=== PATIENT | female | born 1945 | race Caucasian/White ===

== ENCOUNTER 2017-06-25 14:18 | Inpatient (IN) | payer MEDICARE, OTHER ==
[2017-06-25] MEDS ORDERED: Sodium Chloride 0.9% 10 ML Syringe FLUSH PRN (15:23)
[2017-06-25 15:47] LABS: CHLORIDE,CL 104 mEq/L (98-106); SODIUM,NA 140 mEq/L (136-145)
[2017-06-25] MEDS: Albuterol/Ipratropium 3.0-0.5 MG/3 ML Neb Soln NEB SCH ×2 (16:15→20:17)
[2017-06-25] MEDS: Azithromycin 500 MG in Sodium Chloride 0.9% 250 ML IV SCH (16:16)
[2017-06-25] MEDS: Enoxaparin 40 MG/0.4 ML Syringe SUBCUT SCH (16:20)
[2017-06-25] MEDS: methylPREDNISolone Sodium Succinate 125 MG/2 ML SDV IVPUSH SCH (16:22)
[2017-06-25] MEDS: cefTRIAXone 1 GM Vial IVPUSH SCH (16:24)
[2017-06-25] MEDS: glipiZIDE 5 MG Tab PO SCH (17:35)
[2017-06-25] MEDS: metFORMIN 500 MG Tab PO SCH (17:35)
[2017-06-25] MEDS: Pantoprazole 40 MG Vial IVPUSH SCH (17:40)
[2017-06-25] MEDS: Simvastatin 40 MG Tab PO SCH (19:47)
[2017-06-25] MEDS: Montelukast 10 MG Tab PO SCH (19:47)
[2017-06-25] MEDS: Formoterol/Mometasone 200-5 MCG 8.8 GM Inhaler IH SCH (20:18)
[2017-06-25] MEDS: Codeine/Promethazine 10-6.25 MG/5 ML Syrup 5 ML UD Cup PO PRN (20:26)
[2017-06-26] MEDS ORDERED: guaiFENesin 200 MG Tab PO PRN (09:46)
[2017-06-26] MEDS: Codeine/Promethazine 10-6.25 MG/5 ML Syrup 5 ML UD Cup PO PRN ×2 (10:11→17:49)
[2017-06-26] MEDS: metFORMIN 500 MG Tab PO SCH ×2 (10:12→16:54)
[2017-06-26] MEDS: Albuterol/Ipratropium 3.0-0.5 MG/3 ML Neb Soln NEB SCH ×4 (10:12→20:23)
[2017-06-26] MEDS: Formoterol/Mometasone 200-5 MCG 8.8 GM Inhaler IH SCH ×2 (10:12→20:24)
[2017-06-26] MEDS: Potassium Chloride 10 MEQ Tab.ER PO SCH (10:13)
[2017-06-26] MEDS: glipiZIDE 5 MG Tab PO SCH ×2 (10:13→16:54)
[2017-06-26] MEDS: Furosemide 40 MG Tab PO SCH (10:13)
[2017-06-26] MEDS: Levothyroxine 150 MCG Tab PO SCH (10:13)
[2017-06-26] MEDS: Insulin Aspart 100 Units/ML 3 ML Pen SUBCUT SCH ×3 (12:00→20:17)
--- NOTE | 2017-06-26 14:53 | PCM.PN ---
- General Info Date of Service: 06/26/17 Admission Dx/Problem (Free Text): Asthma Exacerbation Functional Status: Reports: Pain Controlled, Tolerating Diet, Ambulating - Review of Systems General: Reports: Fever, Weakness, Fatigue HEENT: Reports: Sinus Congestion, Rhinitis Pulmonary: Reports: Shortness of Breath, Cough, Wheezing Cardiovascular: Reports: No Symptoms Gastrointestinal: Denies: Abdominal Pain, Nausea, Vomiting Genitourinary: Reports: No Symptoms Musculoskeletal: Reports: No Symptoms Skin: Reports: No Symptoms Neurological: Reports: No Symptoms - Patient Data Vitals - Most Recent: Last Vital Signs Temp 97.3 F 06/26/17 12:00 Pulse 102 H 06/26/17 12:00 Resp 19 06/26/17 12:00 BP 105/60 06/26/17 12:00 Pulse Ox 98 06/26/17 12:00 Weight - Most Recent: 166 lb 14.239 oz Lab Results Last 24 Hours: Laboratory Results - last 24 hr 06/25/17 06/25/17 06/25/17 Range/Units 15:23 15:23 16:00 WBC 4.4 L (5.0-10.0) 10^3/uL RBC 3.90 L (4.00-5.50) 10^6/uL Hgb 9.6 L (12.0-16.0) g/dL Hct 31.2 L (37.0-47.0) % MCV 80.0 L (82.0-94.0) fL MCH 24.6 L (27.0-32.0) pg MCHC 30.8 L (33.0-38.0) g/dL RDW Coeff of Mahnaz 15.5 H (11.0-15.0) % Plt Count 171 (150-400) 10^3/uL Neut % (Auto) 64.8 (35-85) % Lymph % (Auto) 24.5 (10-55) % Chambers % (Auto) 7.1 (0-16) % Eos % (Auto) 3.4 (0-5) % Baso % (Auto) 0.2 (0-3) % Neut # (Auto) 2.82 (1.80-7.00) 10^3/uL Lymph # (Auto) 1.07 (1.00-4.80) 10^3/uL Chambers # (Auto) 0.31 (0.00-0.80) 10^3/uL Eos # (Auto) 0.15 (0.00-0.45) 10^3/uL Baso # (Auto) 0.01 10^3/uL Sodium 140 (136-145) mEq/L Potassium 3.8 (3.5-5.0) mEq/L Chloride 104 (98-106) mEq/L Carbon Dioxide 24 (21-32) mmol/L BUN 6 L (7-18) mg/dL Creatinine 0.9 (0.6-1.0) mg/dL Est Cr Clr Drug Dosing 47.95 mL/min Estimated GFR (MDRD) > 60 (>=60) mL/min Glucose 94 D (75-99) mg/dL POC Glucose (75-105) mg/dl Calcium 8.3 L (8.4-10.1) mg/dL C-Reactive Protein 1.8 H (0.2-0.8) mg/dL Urine Color Yellow (YELLOW) Urine Appearance Clear (CLEAR) Urine pH 8.5 H (4.5-8.0) Ur Specific [place] 1.015 (1.003-1.020) Urine Protein Negative (NEGATIVE) mg/dL Urine Glucose (UA) Negative (NEGATIVE) mg/dL Urine Ketones Negative (NEGATIVE) mg/dL Urine Occult Blood Negative (NEGATIVE) Urine Nitrite Negative (NEGATIVE) Urine Bilirubin Negative (NEGATIVE) Urine Urobilinogen 0.2 (0.2-1.0) EU/dL Ur Leukocyte Esterase Negative (NEGATIVE) Urine RBC Not seen (0-5) /HPF Urine WBC Not seen (0-5) /HPF Ur Squamous Epith Cells Occasional H (NOT SEEN) /HPF 06/25/17 06/25/17 06/26/17 Range/Units 17:41 20:31 07:30 WBC (5.0-10.0) 10^3/uL RBC (4.00-5.50) 10^6/uL Hgb (12.0-16.0) g/dL Hct (37.0-47.0) % MCV (82.0-94.0) fL MCH (27.0-32.0) pg MCHC (33.0-38.0) g/dL RDW Coeff of Mahnaz (11.0-15.0) % Plt Count (150-400) 10^3/uL Neut % (Auto) (35-85) % Lymph % (Auto) (10-55) % [place] % (Auto) (0-16) % Eos % (Auto) (0-5) % Baso % (Auto) (0-3) % Neut # (Auto) (1.80-7.00) 10^3/uL Lymph # (Auto) (1.00-4.80) 10^3/uL Chambers # (Auto) (0.00-0.80) 10^3/uL Eos # (Auto) (0.00-0.45) 10^3/uL Baso # (Auto) 10^3/uL Sodium (136-145) mEq/L Potassium (3.5-5.0) mEq/L Chloride (98-106) mEq/L Carbon Dioxide (21-32) mmol/L BUN (7-18) mg/dL Creatinine (0.6-1.0) mg/dL Est Cr Clr Drug Dosing mL/min Estimated GFR (MDRD) (>=60) mL/min Glucose (75-99) mg/dL POC Glucose 115 H 313 H 284 H (75-105) mg/dl Calcium (8.4-10.1) mg/dL C-Reactive Protein (0.2-0.8) mg/dL Urine Color (YELLOW) Urine Appearance (CLEAR) Urine pH (4.5-8.0) Ur Specific [place] (1.003-1.020) Urine Protein (NEGATIVE) mg/dL Urine Glucose (UA) (NEGATIVE) mg/dL Urine Ketones (NEGATIVE) mg/dL Urine Occult Blood (NEGATIVE) Urine Nitrite (NEGATIVE) Urine Bilirubin (NEGATIVE) Urine Urobilinogen (0.2-1.0) EU/dL Ur Leukocyte Esterase (NEGATIVE) Urine RBC (0-5) /HPF Urine WBC (0-5) /HPF Ur Squamous Epith Cells (NOT SEEN) /HPF 06/26/17 Range/Units 11:55 WBC (5.0-10.0) 10^3/uL RBC (4.00-5.50) 10^6/uL Hgb (12.0-16.0) g/dL Hct (37.0-47.0) % MCV (82.0-94.0) fL MCH (27.0-32.0) pg MCHC (33.0-38.0) g/dL RDW Coeff of Mahnaz (11.0-15.0) % Plt Count (150-400) 10^3/uL Neut % (Auto) (35-85) % Lymph % (Auto) (10-55) % Chambers % (Auto) (0-16) % Eos % (Auto) (0-5) % Baso % (Auto) (0-3) % Neut # (Auto) (1.80-7.00) 10^3/uL Lymph # (Auto) (1.00-4.80) 10^3/uL [place] # (Auto) (0.00-0.80) 10^3/uL Eos # (Auto) (0.00-0.45) 10^3/uL Baso # (Auto) 10^3/uL Sodium (136-145) mEq/L Potassium (3.5-5.0) mEq/L Chloride (98-106) mEq/L Carbon Dioxide (21-32) mmol/L BUN (7-18) mg/dL Creatinine (0.6-1.0) mg/dL Est Cr Clr Drug Dosing mL/min Estimated GFR (MDRD) (>=60) mL/min Glucose (75-99) mg/dL POC Glucose 192 H (75-105) mg/dl Calcium (8.4-10.1) mg/dL C-Reactive Protein (0.2-0.8) mg/dL Urine Color (YELLOW) Urine Appearance (CLEAR) Urine pH (4.5-8.0) Ur Specific [place] (1.003-1.020) Urine Protein (NEGATIVE) mg/dL Urine Glucose (UA) (NEGATIVE) mg/dL Urine Ketones (NEGATIVE) mg/dL Urine Occult Blood (NEGATIVE) Urine Nitrite (NEGATIVE) Urine Bilirubin (NEGATIVE) Urine Urobilinogen (0.2-1.0) EU/dL Ur Leukocyte Esterase (NEGATIVE) Urine RBC (0-5) /HPF Urine WBC (0-5) /HPF Ur Squamous Epith Cells (NOT SEEN) /HPF Berry Results Last 24 Hours: Microbiology 06/26/17 10:00 Occult Blood - Preliminary Stool / Feces Med Orders - Current: Current Medications Acetaminophen (Tylenol) 650 mg PO Q4H PRN PRN Reason: Pain/Fever Albuterol/Ipratropium (Duoneb 3.0-0.5 Mg/3 Ml) 3 ml NEB QIDRT [facility] Last Admin: 06/26/17 12:00 Dose: 3 ml Ceftriaxone Sodium (Rocephin) 1 gm IVPUSH Q24H [facility] Last Admin: 06/25/17 16:24 Dose: 1 gm Enoxaparin Sodium (Lovenox) 40 mg SUBCUT Q24H [facility] Last Admin: 06/25/17 16:20 Dose: 40 mg Furosemide (Lasix) 40 mg PO DAILY [facility] Last Admin: 06/26/17 10:13 Dose: Not Given Glipizide (Glucotrol) 5 mg PO BIDMEALS [facility] Last Admin: 06/26/17 10:13 Dose: Not Given Guaifenesin (Organ-I Nr) 200 mg PO Q4H PRN PRN Reason: Cough Azithromycin 500 mg/ Sodium (Chloride) 250 mls @ 250 mls/hr IV Q24H [facility] Last Admin: 06/25/17 16:16 Dose: 250 mls/hr Insulin Aspart (Novolog) 0 unit SUBCUT WITHMEALSANDBED [facility]; Protocol Last Admin: 06/26/17 12:00 Dose: 2 unit Levothyroxine Sodium (Levothyroxine) 150 mcg PO DAILY [facility] Last Admin: 06/26/17 10:13 Dose: Not Given Metformin HCl (Glucophage) 1,000 mg PO BIDMEALS [facility] Last Admin: 06/26/17 10:12 Dose: Not Given Methylprednisolone Sodium Succinate (Solu-Medrol) 125 mg IVPUSH Q24H [facility] Last Admin: 06/25/17 16:22 Dose: 125 mg Mometasone Furoate/Formoterol Fumar (Dulera 200-5 Mcg) 2 puff IH BID [facility] Last Admin: 06/26/17 10:12 Dose: Not Given Montelukast Sodium (Singulair) 10 mg PO BEDTIME [facility] Last Admin: 06/25/17 19:47 Dose: 10 mg Pantoprazole Sodium (Protonix Iv) 40 mg IVPUSH Q24H [facility] Last Admin: 06/25/17 17:40 Dose: 40 mg Potassium Chloride (Klor-Con 10) 20 meq PO DAILY [facility] Last Admin: 03/27/18 10:13 Dose: Not Given Promethazine HCl/Codeine (Phenergan With Codeine) 10 ml PO Q6H PRN PRN Reason: Cough Last Admin: 06/26/17 10:11 Dose: 10 ml Simvastatin (Zocor) 40 mg PO BEDTIME [facility] Last Admin: 06/25/17 19:47 Dose: 40 mg Sodium Chloride (Saline Flush) 10 ml FLUSH ASDIRECTED PRN PRN Reason: Keep Vein Open - Exam General: Alert, Oriented HEENT: Mucous Membr. Moist/[place] Neck: Supple Lungs: Decreased Breath Sounds, Wheezing Cardiovascular: Regular Rate, Regular Rhythm GI/Abdominal Exam: Normal Bowel Sounds, Soft, Non-Tender Extremities: Normal Inspection, No Pedal Edema Skin: Warm, Dry Neurological: No New Focal Deficit - Problem List & Annotations (1) Asthma exacerbation SNOMED Code(s): 469153051 Code(s): J45.901 - UNSPECIFIED ASTHMA WITH (ACUTE) EXACERBATION Status: Acute Priority: High Current Visit: Yes (2) Diabetes mellitus, type II SNOMED Code(s): 86780092 Code(s): E11.9 - TYPE 2 DIABETES MELLITUS WITHOUT COMPLICATIONS Status: Acute Priority: High Current Visit: Yes - Problem List Review Problem List Initiated/Reviewed/Updated: Yes - My Orders Last 24 Hours: My Active Orders 06/26/17 09:46 guaiFENesin [Organ-I NR] 200 mg PO Q4H PRN 06/26/17 11:56 Acetaminophen [Tylenol] 650 mg PO Q4H PRN 06/26/17 12:00 Insulin Aspart [NovoLOG] See Protocol SUBCUT WITHMEALSANDBED - Assessment Assessment:: Asthma Exacerbation - Plan Plan:: Patient admitted for asthma exacerbation. Presented with increasing sinus congestion and cough over the last 5 days. [place] it was precipitated by choking on coffee. Has been wheezing, states chest still tight. Is concerned about her laryngitis. Cough does cause throat discomfort. She does continue to have inspiratory and expiratory wheezing noted. Oxygen sats are good. All labs were normal on admit. Blood sugars have been increasing due to Solu Medrol. Will start sliding scale insulin, continue to watch blood sugars QID. Add Mucinex. Encourage ambulation. Inappropriate for discharge today.
[2017-06-26] MEDS: Enoxaparin 40 MG/0.4 ML Syringe SUBCUT SCH (15:22)
[2017-06-26] MEDS: methylPREDNISolone Sodium Succinate 125 MG/2 ML SDV IVPUSH SCH (15:24)
[2017-06-26] MEDS: cefTRIAXone 1 GM Vial IVPUSH SCH (15:25)
[2017-06-26] MEDS: Azithromycin 500 MG in Sodium Chloride 0.9% 250 ML IV SCH (15:30)
[2017-06-26] MEDS: Pantoprazole 40 MG Vial IVPUSH SCH (16:55)
[2017-06-26] MEDS: Acetaminophen 325 MG Tab PO PRN (17:49)
[2017-06-26] MEDS: Montelukast 10 MG Tab PO SCH (20:22)
[2017-06-26] MEDS: Simvastatin 40 MG Tab PO SCH (20:22)
[2017-06-27] MEDS: metFORMIN 500 MG Tab PO SCH ×2 (07:25→17:00)
[2017-06-27] MEDS: Potassium Chloride 10 MEQ Tab.ER PO SCH (07:25)
[2017-06-27] MEDS: Levothyroxine 150 MCG Tab PO SCH (07:25)
[2017-06-27] MEDS: Furosemide 40 MG Tab PO SCH (07:25)
[2017-06-27] MEDS: Albuterol/Ipratropium 3.0-0.5 MG/3 ML Neb Soln NEB SCH ×4 (07:25→19:51)
[2017-06-27] MEDS: Formoterol/Mometasone 200-5 MCG 8.8 GM Inhaler IH SCH ×2 (07:26→19:52)
[2017-06-27] MEDS: glipiZIDE 5 MG Tab PO SCH ×2 (07:26→17:00)
[2017-06-27] MEDS: Insulin Aspart 100 Units/ML 3 ML Pen SUBCUT SCH ×4 (07:58→20:15)
[2017-06-27] MEDS: Acetaminophen 325 MG Tab PO PRN (08:55)
[2017-06-27] MEDS: Codeine/Promethazine 10-6.25 MG/5 ML Syrup 5 ML UD Cup PO PRN ×2 (13:08→20:03)
[2017-06-27] MEDS: methylPREDNISolone Sodium Succinate 125 MG/2 ML SDV IVPUSH SCH (15:47)
[2017-06-27] MEDS: Enoxaparin 40 MG/0.4 ML Syringe SUBCUT SCH (15:47)
[2017-06-27] MEDS: Azithromycin 500 MG in Sodium Chloride 0.9% 250 ML IV SCH (15:47)
[2017-06-27] MEDS: cefTRIAXone 1 GM Vial IVPUSH SCH (15:47)
[2017-06-27] MEDS: Pantoprazole 40 MG Vial IVPUSH SCH (16:09)
[2017-06-27] MEDS: Montelukast 10 MG Tab PO SCH (19:50)
[2017-06-27] MEDS: Simvastatin 40 MG Tab PO SCH (19:50)
--- NOTE | 2017-06-28 07:16 | PN ---
DATE: 06/27/2017 HISTORY OF PRESENT ILLNESS: Zara was admitted for asthma exacerbation. Questionable etiology. She has had some URI symptoms but also did have a choking episode many days prior to this, approximately a week, I believe. Nevertheless she presented with cough and wheezing. Chest x-ray has been clear. Labs are reassuring other than mild anemia, still waiting on workup thus far. Hemoccults are negative. PHYSICAL EXAMINATION: VITAL SIGNS: Stable. She is saturating above 90 on room air. She has not spiked any temps. She is less labored with her breathing and less tachypneic today but still present. HEENT: She is starting to get a little stronger voice, laryngitis type symptoms appeared to be resolving. NECK: I do not feel any cervical adenopathy. Trachea is midline. LUNGS: Sounds are diminished with expiratory wheezes diffusely, no rales or rhonchi. CARDIAC: Tones are regular and non tachy. ABDOMEN: Soft. EXTREMITIES: No peripheral edema. ASSESSMENT: ASTHMA EXACERBATION. P: We will continue with all current cares. Repeat a hemoglobin today although I suspect this is not anything acute. NENA/JANIYA /[id number]
[2017-06-28] MEDS: Levothyroxine 150 MCG Tab PO SCH (07:39)
[2017-06-28] MEDS: Formoterol/Mometasone 200-5 MCG 8.8 GM Inhaler IH SCH ×2 (07:39→20:07)
[2017-06-28] MEDS: glipiZIDE 5 MG Tab PO SCH ×2 (07:39→17:44)
[2017-06-28] MEDS: Furosemide 40 MG Tab PO SCH (07:39)
[2017-06-28] MEDS: Albuterol/Ipratropium 3.0-0.5 MG/3 ML Neb Soln NEB SCH ×4 (07:39→20:06)
[2017-06-28] MEDS: metFORMIN 500 MG Tab PO SCH ×2 (07:39→17:44)
[2017-06-28] MEDS: Potassium Chloride 10 MEQ Tab.ER PO SCH (07:39)
[2017-06-28] MEDS: Insulin Aspart 100 Units/ML 3 ML Pen SUBCUT SCH ×4 (08:09→20:07)
--- NOTE | 2017-06-28 08:51 | PCM.PN ---
- General Info Date of Service: 06/28/17 Admission Dx/Problem (Free Text): Asthma Exacerbation Functional Status: Reports: Pain Controlled, Tolerating Diet, Ambulating - Review of Systems General: Reports: Weakness, Fatigue. Denies: Fever HEENT: Reports: Sore Throat (laryngitis), Rhinitis, Other (sore in left nare) Pulmonary: Reports: Shortness of Breath, Cough, Wheezing. Denies: Sputum Cardiovascular: Denies: Chest Pain, Edema, Lightheadedness Gastrointestinal: Reports: Other (bloating). Denies: Abdominal Pain, Nausea, Vomiting Genitourinary: Reports: No Symptoms Musculoskeletal: Reports: No Symptoms Skin: Reports: No Symptoms Neurological: Reports: No Symptoms - Patient Data Vitals - Most Recent: Last Vital Signs Temp 98.2 F 06/28/17 08:00 Pulse 61 06/28/17 08:00 Resp 20 06/28/17 08:00 BP 116/64 06/28/17 08:00 Pulse Ox 94 L 06/28/17 08:00 Weight - Most Recent: 166 lb 14.239 oz Lab Results Last 24 Hours: Laboratory Results - last 24 hr 06/27/17 06/27/17 06/27/17 Range/Units 11:40 13:00 17:18 Hgb 9.9 L (12.0-16.0) g/dL POC Glucose 57 L 223 H (75-105) mg/dl 06/27/17 06/28/17 Range/Units 20:13 07:28 Hgb (12.0-16.0) g/dL POC Glucose 356 H 229 H (75-105) mg/dl Berry Results Last 24 Hours: Microbiology 06/26/17 10:00 Occult Blood - Final Stool / Feces Med Orders - Current: Current Medications Acetaminophen (Tylenol) 650 mg PO Q4H PRN PRN Reason: Pain/Fever Last Admin: 06/27/17 08:55 Dose: 650 mg Albuterol/Ipratropium (Duoneb 3.0-0.5 Mg/3 Ml) 3 ml NEB QIDRT [facility] Last Admin: 06/28/17 07:39 Dose: 3 ml Ceftriaxone Sodium (Rocephin) 1 gm IVPUSH DAILY@1600 [facility] Enoxaparin Sodium (Lovenox) 40 mg SUBCUT DAILY@1600 [facility] Ferrous Sulfate (Ferrous Sulfate) 324 mg PO BIDMEALS [facility] Furosemide (Lasix) 40 mg PO DAILY [facility] Last Admin: 06/28/17 07:39 Dose: 40 mg Glipizide (Glucotrol) 5 mg PO BIDMEALS [facility] Last Admin: 06/28/17 07:39 Dose: 5 mg Guaifenesin (Organ-I Nr) 200 mg PO Q4H PRN PRN Reason: Cough Azithromycin 500 mg/ Sodium (Chloride) 250 mls @ 250 mls/hr IV DAILY@1600 [facility] Insulin Aspart (Novolog) 0 unit SUBCUT WITHMEALSANDBED [facility]; Protocol Last Admin: 06/28/17 08:09 Dose: 4 unit Levothyroxine Sodium (Levothyroxine) 150 mcg PO DAILY [facility] Last Admin: 06/28/17 07:39 Dose: 150 mcg Metformin HCl (Glucophage) 1,000 mg PO BIDMEALS [facility] Last Admin: 06/28/17 07:39 Dose: 1,000 mg Methylprednisolone Sodium Succinate (Solu-Medrol) 125 mg IVPUSH DAILY@1600 [facility] Mometasone Furoate/Formoterol Fumar (Dulera 200-5 Mcg) 2 puff IH BID [facility] Last Admin: 06/28/17 07:39 Dose: 2 puff Montelukast Sodium (Singulair) 10 mg PO BEDTIME [facility] Last Admin: 06/27/17 19:50 Dose: 10 mg Pantoprazole Sodium (Protonix Iv) 40 mg IVPUSH DAILY@1600 [facility] Potassium Chloride (Klor-Con 10) 20 meq PO DAILY [facility] Last Admin: 06/28/17 07:39 Dose: 20 meq Promethazine HCl/Codeine (Phenergan With Codeine) 10 ml PO Q6H PRN PRN Reason: Cough Last Admin: 06/27/17 20:03 Dose: 10 ml Simvastatin (Zocor) 40 mg PO BEDTIME [facility] Last Admin: 06/27/17 19:50 Dose: 40 mg Sodium Chloride (Saline Flush) 10 ml FLUSH ASDIRECTED PRN PRN Reason: Keep Vein Open Discontinued Medications Ceftriaxone Sodium (Rocephin) 1 gm IVPUSH Q24H [facility] Last Admin: 06/27/17 15:47 Dose: 1 gm Enoxaparin Sodium (Lovenox) 40 mg SUBCUT Q24H [facility] Last Admin: 06/27/17 15:47 Dose: 40 mg Azithromycin 500 mg/ Sodium (Chloride) 250 mls @ 250 mls/hr IV Q24H [facility] Last Admin: 06/27/17 15:47 Dose: 250 mls/hr Methylprednisolone Sodium Succinate (Solu-Medrol) 125 mg IVPUSH Q24H [facility] Last Admin: 06/27/17 15:47 Dose: 125 mg Pantoprazole Sodium (Protonix Iv) 40 mg IVPUSH Q24H [facility] Last Admin: 06/27/17 16:09 Dose: 40 mg - Exam General: Alert, Oriented HEENT: Mucous Membr. Moist/[place] Neck: Supple Lungs: Clear to Auscultation, Normal Respiratory Effort Cardiovascular: Regular Rate, Regular Rhythm GI/Abdominal Exam: Normal Bowel Sounds, Soft, Non-Tender Extremities: Normal Inspection, No Pedal Edema Skin: Warm, Dry Neurological: No New Focal Deficit - Problem List & Annotations (1) Asthma exacerbation SNOMED Code(s): 223866127 Code(s): J45.901 - UNSPECIFIED ASTHMA WITH (ACUTE) EXACERBATION Status: Acute Priority: High Current Visit: Yes (2) Diabetes mellitus, type II SNOMED Code(s): 72120099 Code(s): E11.9 - TYPE 2 DIABETES MELLITUS WITHOUT COMPLICATIONS Status: Acute Priority: High Current Visit: Yes - Problem List Review Problem List Initiated/Reviewed/Updated: Yes - My Orders Last 24 Hours: My Active Orders 06/28/17 08:34 Ferrous Sulfate 324 mg PO BIDMEALS 06/28/17 08:40 Abdomen Comp [US] Routine - Assessment Assessment:: Asthma Exacerbation - Plan Plan:: Patient admitted for asthma exacerbation. Presented with increasing sinus congestion and cough over the last 5 days. [place] it was precipitated by choking on coffee. Has been wheezing, states chest still tight. Is concerned about her laryngitis. Cough does cause throat discomfort. She does continue to have inspiratory and expiratory wheezing noted. Oxygen sats are good. All labs were normal on admit. Blood sugars have been increasing due to Solu Medrol. Will start sliding scale insulin, continue to watch blood sugars QID. Add Mucinex. Encourage ambulation. Inappropriate for discharge today. 06-28-2017 Patient improving. Has better air exchange, tolerating activity. She is up and about in the room, states does still get winded. Had increasing coughing spell yesterday after her shower, moving more phlegm since then. Afebrile. Lung sounds much improved, fine expiratory wheezing noted. Voice has improved. Oxygen sats 98%. Iron studies noted, low Ferritin at 8. Is complaining of abdominal bloating, has been present for a month. Hemocults have been negative. Also concerned about a sore in her nose. Will start oral iron today. Abdominal ultrasound for the bloating. May need to see Dr. Leal if sore in nose does not heal. Possible discharge home tomorrow.
[2017-06-28] MEDS: Ferrous Sulfate 324 MG Tab.EC PO SCH ×2 (09:21→17:44)
[2017-06-28] MEDS: Acetaminophen 325 MG Tab PO PRN (13:23)
[2017-06-28] MEDS ORDERED: methylPREDNISolone Sodium Succinate 125 MG/2 ML SDV IVPUSH SCH (16:00)
[2017-06-28] MEDS ORDERED: cefTRIAXone 1 GM Vial IVPUSH SCH (16:00)
[2017-06-28] MEDS ORDERED: Enoxaparin 40 MG/0.4 ML Syringe SUBCUT SCH (16:00)
[2017-06-28] MEDS ORDERED: Azithromycin 500 MG in Sodium Chloride 0.9% 250 ML IV SCH (16:00)
[2017-06-28] MEDS ORDERED: Pantoprazole 40 MG Vial IVPUSH SCH (16:00)
[2017-06-28] MEDS: Montelukast 10 MG Tab PO SCH (20:05)
[2017-06-28] MEDS: Simvastatin 40 MG Tab PO SCH (20:06)
[2017-06-29 07:14] VITALS: BP 106/57
[2017-06-29] MEDS: Insulin Aspart 100 Units/ML 3 ML Pen SUBCUT SCH (07:52)
[2017-06-29] MEDS: Formoterol/Mometasone 200-5 MCG 8.8 GM Inhaler IH SCH (07:52)
[2017-06-29] MEDS: Albuterol/Ipratropium 3.0-0.5 MG/3 ML Neb Soln NEB SCH (07:53)
[2017-06-29] MEDS: glipiZIDE 5 MG Tab PO SCH (07:53)
[2017-06-29] MEDS: metFORMIN 500 MG Tab PO SCH (07:53)
[2017-06-29] MEDS: Furosemide 40 MG Tab PO SCH (07:53)
[2017-06-29] MEDS: Levothyroxine 150 MCG Tab PO SCH (07:53)
[2017-06-29] MEDS: Potassium Chloride 10 MEQ Tab.ER PO SCH (07:53)
[2017-06-29] MEDS: Ferrous Sulfate 324 MG Tab.EC PO SCH (07:53)
[2017-06-29] MEDS: Codeine/Promethazine 10-6.25 MG/5 ML Syrup 5 ML UD Cup PO PRN (10:37)
--- NOTE | 2017-07-02 09:54 | PCM.DCSUM1 ---
Discharge Summary - Hospital Course Free Text/Narrative:: Patient presented to clinic to see Dr. Bernstein with complaints of increased cough, hoarseness and facial pressure. Had an incident where she choked on her coffee about 5 days prior and believes it triggered this. She complains of fever and shortness of breath. Wheezing was worse than normal. Had been using her nebulizers at home. Lung sounds in clinic were noted to have inspiratory and expiratory wheezing and work of breathing was increased. She was admitted for asthma exacerbation and work up ordered. Initial labs on admit, WBC 4.4. Hemoglobin low at 9.6 with MCV at 80. CRP at 1.8. UA clear. Chest xray negative. - Discharge Data Discharge Date: 06/29/17 Discharge Disposition: Home, Self-Care 01 Condition: Good - Discharge Diagnosis/Problem(s) (1) Asthma exacerbation SNOMED Code(s): 941856586 ICD Code: J45.901 - UNSPECIFIED ASTHMA WITH (ACUTE) EXACERBATION Status: Acute Priority: High (2) Diabetes mellitus, type II SNOMED Code(s): 54204888 ICD Code: E11.9 - TYPE 2 DIABETES MELLITUS WITHOUT COMPLICATIONS Status: Acute Priority: High - Patient Summary/Data Complications: none Consults: Consultations 06/25/17 15:23 Respiratory Care Assess and Treatment [CONS] Routine Hospital Course: Patient has had slow improvement of her asthma over the last 3 days. Now has much better air exchange, less wheezing. Tolerating ambulating in the halls. Patient noted to be anemic while here. Stools studies done and all were negative. Ferritin and iron stores are low so iron started while here. Blood sugars did rise after use of steroids, started novolog per sliding scale and better controlled. Will discharge home on Ceftin, prednisone and nebulizer treatments. Has a physical scheduled next week with Dr. Bernstein, hospital follow up at that time. - Patient Instructions Diet: Diabetic Diet Activity: As Tolerated - Discharge Plan Prescriptions/Med Rec: Albuterol/Ipratropium [DuoNeb 3.0-0.5 MG/3 ML] 3 ml NEB QIDRT #28 neb Cefuroxime Axetil [Cefuroxime] 250 mg PO BID #20 tablet Codeine/Promethazine [Phenergan with Codeine] 10 ml PO Q6H PRN #180 cup PRN Reason: Cough Ferrous Sulfate 324 mg PO BIDMEALS #60 tab.ec Prednisone [IJD: predniSONE] 20 mg PO WITHBREAKFAST #4 tab Home Medications: Home Meds Budesonide/Formoterol [Symbicort 160-4.5 MCG] 2 puff INH BID 09/02/14 [History] Calcium Carbonate/Vitamin D3 [Calcium 600-Vit D3 800 Caplet] 2 tab PO DAILY 06/14 [History] Cyanocobalamin (Vitamin B-12) [Cyanocobalamin Injection] 1,000 mcg IM Q30D 09/02 [History] Furosemide 40 mg PO DAILY 09/02/14 [History] Levothyroxine Sodium [Levoxyl] 150 mcg PO DAILY 09/02/14 [History] Montelukast Sodium [Singulair] 10 mg PO BEDTIME 09/02/14 [History] Simvastatin 40 mg PO BEDTIME 09/02/14 [History] glipiZIDE/Metformin HCl [GlipiZIDE-Metformin 2.5-500 MG] 2 tab PO BIDMEALS 09/02 [History] Potassium Chloride [Klor-Con 10] 20 meq PO DAILY 04/30/15 [History] Sennosides [Laxative] 50 mg PO BEDTIME 04/30/15 [History] Cholecalciferol (Vitamin D3) [Vitamin D3] 1,000 unit PO DAILY 09/14/15 [History] Diethylpropion HCl [Diethylpropion HCl ER] 75 mg PO DAILY 09/14/15 [History] Magnesium Oxide [Magnesium] 500 mg PO BEDTIME 09/14/15 [History] Vegetable And Fruit 1 tab PO DAILY 09/14/15 [History] Denosumab [Prolia] 60 mg SQ ASDIRECTED 06/25/17 [History] Dexlansoprazole [Dexilant] 60 mg PO DAILY 06/25/17 [History] L.acidoph,Paracasei, B.lactis [Probiotic] 1 tab PO DAILY 06/25/17 [History] Albuterol/Ipratropium [DuoNeb 3.0-0.5 MG/3 ML] 3 ml NEB QIDRT #28 neb 06/29/17 [ Rx] Cefuroxime Axetil [Cefuroxime] 250 mg PO BID #20 tablet 06/29/17 [Rx] Codeine/Promethazine [Phenergan with Codeine] 10 ml PO Q6H PRN #180 cup [Rx] Ferrous Sulfate 324 mg PO BIDMEALS #60 tab.ec 06/29/17 [Rx] Prednisone [IJD: predniSONE] 20 mg PO WITHBREAKFAST #4 tab 06/29/17 [Rx] Patient Handouts: Asthma, Adult Referrals: Dereje Bernstein MD [Primary Care Provider] - (Keep scheduled appointment with Dr. Bernstein next week) - Discharge Summary/Plan Comment DC Time >30 min.: No Discharge Summary/Plan Comment: Discharge home Start Ceftin 250 mg BID for 7 days Prednisone 20 mg daily for 5 days DuoNebs QID - General Info Date of Service: 06/29/17 Admission Dx/Problem (Free Text: Asthma Exacerbation Functional Status: Reports: Pain Controlled, Tolerating Diet, Ambulating - Review of Systems General: Reports: Weakness, Fatigue. Denies: Fever HEENT: Reports: Sinus Congestion, Rhinitis Pulmonary: Reports: Cough. Denies: Shortness of Breath, Wheezing Cardiovascular: Reports: No Symptoms Gastrointestinal: Reports: No Symptoms Genitourinary: Reports: No Symptoms Musculoskeletal: Reports: No Symptoms Skin: Reports: No Symptoms Neurological: Reports: No Symptoms - Patient Data Vitals - Most Recent: Last Vital Signs Temp 97.4 F 06/29/17 07:11 Pulse 61 06/29/17 07:11 Resp 18 06/29/17 07:11 BP 106/57 L 06/29/17 07:11 Pulse Ox 95 06/29/17 04:00 Weight - Most Recent: 166 lb 14.239 oz Med Orders - Current: Current Medications Discontinued Medications Acetaminophen (Tylenol) 650 mg PO Q4H PRN PRN Reason: Pain/Fever Last Admin: 06/28/17 13:23 Dose: 650 mg Albuterol/Ipratropium (Duoneb 3.0-0.5 Mg/3 Ml) 3 ml NEB QIDRT [facility] Last Admin: 06/29/17 07:53 Dose: 3 ml Ceftriaxone Sodium (Rocephin) 1 gm IVPUSH Q24H [facility] Last Admin: 06/27/17 15:47 Dose: 1 gm Ceftriaxone Sodium (Rocephin) 1 gm IVPUSH DAILY@1600 [facility] Last Admin: 06/28/17 16:19 Dose: 1 gm Enoxaparin Sodium (Lovenox) 40 mg SUBCUT Q24H [facility] Last Admin: 06/27/17 15:47 Dose: 40 mg Enoxaparin Sodium (Lovenox) 40 mg SUBCUT DAILY@1600 [facility] Last Admin: 06/28/17 16:20 Dose: 40 mg Ferrous Sulfate (Ferrous Sulfate) 324 mg PO BIDMEALS [facility] Last Admin: 06/29/17 07:53 Dose: 324 mg Furosemide (Lasix) 40 mg PO DAILY [facility] Last Admin: 06/29/17 07:53 Dose: 40 mg Glipizide (Glucotrol) 5 mg PO BIDMEALS [facility] Last Admin: 06/29/17 07:53 Dose: 5 mg Guaifenesin (Organ-I Nr) 200 mg PO Q4H PRN PRN Reason: Cough Azithromycin 500 mg/ Sodium (Chloride) 250 mls @ 250 mls/hr IV Q24H [facility] Last Admin: 06/27/17 15:47 Dose: 250 mls/hr Azithromycin 500 mg/ Sodium (Chloride) 250 mls @ 250 mls/hr IV DAILY@1600 [facility] Last Admin: 06/28/17 16:20 Dose: 250 mls/hr Insulin Aspart (Novolog) 0 unit SUBCUT WITHMEALSANDBED [facility]; Protocol Last Admin: 06/29/17 07:52 Dose: 2 unit Levothyroxine Sodium (Levothyroxine) 150 mcg PO DAILY [facility] Last Admin: 06/29/17 07:53 Dose: 150 mcg Metformin HCl (Glucophage) 1,000 mg PO BIDMEALS [facility] Last Admin: 06/29/17 07:53 Dose: 1,000 mg Methylprednisolone Sodium Succinate (Solu-Medrol) 125 mg IVPUSH Q24H [facility] Last Admin: 06/27/17 15:47 Dose: 125 mg Methylprednisolone Sodium Succinate (Solu-Medrol) 125 mg IVPUSH DAILY@1600 [facility] Last Admin: 06/28/17 16:19 Dose: 125 mg Mometasone Furoate/Formoterol Fumar (Dulera 200-5 Mcg) 2 puff IH BID [facility] Last Admin: 06/29/17 07:52 Dose: 2 puff Montelukast Sodium (Singulair) 10 mg PO BEDTIME [facility] Last Admin: 06/28/17 20:05 Dose: 10 mg Pantoprazole Sodium (Protonix Iv) 40 mg IVPUSH Q24H [facility] Last Admin: 06/27/17 16:09 Dose: 40 mg Pantoprazole Sodium (Protonix Iv) 40 mg IVPUSH DAILY@1600 [facility] Last Admin: 06/28/17 16:19 Dose: 40 mg Potassium Chloride (Klor-Con 10) 20 meq PO DAILY [facility] Last Admin: 06/29/17 07:53 Dose: 20 meq Promethazine HCl/Codeine (Phenergan With Codeine) 10 ml PO Q6H PRN PRN Reason: Cough Last Admin: 06/29/17 10:37 Dose: 10 ml Simvastatin (Zocor) 40 mg PO BEDTIME [facility] Last Admin: 06/28/17 20:06 Dose: 40 mg Sodium Chloride (Saline Flush) 10 ml FLUSH ASDIRECTED PRN PRN Reason: Keep Vein Open - Exam General: Reports: Alert, Oriented HEENT: Reports: Mucous Membr. Moist/[place] Neck: Reports: Supple Lungs: Reports: Clear to Auscultation, Normal Respiratory Effort Cardiovascular: Reports: Regular Rate, Regular Rhythm GI/Abdominal Exam: Normal Bowel Sounds, Soft, Non-Tender Extremities: Normal Inspection, No Pedal Edema Skin: Reports: Warm, Dry Neurological: Reports: No New Focal Deficit
== END 2017-06-29 11:00 | disposition home or self-care (01) | DRG 203 ==
LOC: CC.MS 14:18 → UNDOADMIN 14:18 → CC.MS 15:23
PROVIDERS: ADMIT Family Medicine; ATTEND Family Medicine
DX: J45.901 Unspecified asthma with (acute) exacerbation (principal); K21.9 Gastro-esophageal reflux disease without esophagitis; E78.00 Pure hypercholesterolemia, unspecified; I10 Essential (primary) hypertension; E03.9 Hypothyroidism, unspecified; M81.0 Age-related osteoporosis without current pathological fracture; E11.9 Type 2 diabetes mellitus without complications; D64.9 Anemia, unspecified; J04.0 Acute laryngitis; R14.0 Abdominal distension (gaseous); Z88.1 Allergy status to other antibiotic agents; Z88.5 Allergy status to narcotic agent; Z88.8 Allergy status to other drugs, medicaments and biological substances; Z79.84 Long term (current) use of oral hypoglycemic drugs; E53.8 Deficiency of other specified B group vitamins; Z90.710 Acquired absence of both cervix and uterus; Z96.649 Presence of unspecified artificial hip joint
CPT/HCPCS: 36415; 71046; 76700; 80048; 81001; 82270; 82728; 82962; 83540; 83550; 85018; 85025; 86140; 87070; 93005; 94640; A9270-GY; C9113; J0456; J0696; J1650; J1815-GY; J2930; J7050

== ENCOUNTER → 2022-09-01 | Day surgery (SDC) | payer MEDICARE ==
[~2022-09-01] MED LIST: Ketamine 200 MG/20 ML MDV ONE; Lidocaine 2% 20 ML MDV ONE; Phenylephrine 1% 10 MG/ML SDV ONE; Propofol 200 MG/20 ML SDV ONE; fentaNYL 50 MCG/ML SDV ONE
[2022-09-01] MEDS: Lactated Ringers 1,000 ML IV SCH (08:11)
[2022-09-01 10:39] VITALS: BP 126/56; PULSE 55
== END ==
LOC: CC.ACU 08:00 → CC.SDS 08:00 → CC.ACU 09-15 14:51
PROVIDERS: ATTEND Family Medicine
DX: K29.50 Unspecified chronic gastritis without bleeding (principal); B96.81 Helicobacter pylori [H. pylori] as the cause of diseases classified elsewhere; K31.89 Other diseases of stomach and duodenum; D12.3 Benign neoplasm of transverse colon; K21.9 Gastro-esophageal reflux disease without esophagitis; J45.909 Unspecified asthma, uncomplicated; M10.9 Gout, unspecified; E78.00 Pure hypercholesterolemia, unspecified; E03.9 Hypothyroidism, unspecified; E55.9 Vitamin D deficiency, unspecified; M81.0 Age-related osteoporosis without current pathological fracture; E11.9 Type 2 diabetes mellitus without complications; M16.11 Unilateral primary osteoarthritis, right hip; E53.8 Deficiency of other specified B group vitamins; Z88.0 Allergy status to penicillin; Z91.011 Allergy to milk products; Z88.5 Allergy status to narcotic agent; Z88.1 Allergy status to other antibiotic agents; Z88.8 Allergy status to other drugs, medicaments and biological substances; Z79.82 Long term (current) use of aspirin; Z79.890 Hormone replacement therapy; Z79.84 Long term (current) use of oral hypoglycemic drugs; Z79.899 Other long term (current) drug therapy; Z79.51 Long term (current) use of inhaled steroids; Z98.890 Other specified postprocedural states; Z72.0 Tobacco use
CPT/HCPCS: 00532; 00813; 43239; 45385; 82947; 87081; 88305; J2370; J2704; J3010; J7120; J3490

== ENCOUNTER 2023-09-14 07:16 | Day surgery (SDC) | payer MEDICARE ==
[2023-09-14] MEDS: Lactated Ringers 1,000 ML IV SCH (07:43)
[2023-09-14] MEDS ORDERED: Propofol 200 MG/20 ML SDV ONE (07:56)
[2023-09-14] MEDS ORDERED: fentaNYL 50 MCG/ML SDV ONE (07:56)
[2023-09-14] MEDS ORDERED: Ketamine 200 MG/20 ML MDV ONE (07:56)
[2023-09-14 09:23] VITALS: BP 128/54; PULSE 51
== END 2023-09-14 09:32 | disposition home or self-care (01) ==
LOC: CC.SDS 07:16
PROVIDERS: ATTEND Family Medicine
DX: D12.2 Benign neoplasm of ascending colon (principal); D12.3 Benign neoplasm of transverse colon; K57.30 Diverticulosis of large intestine without perforation or abscess without bleeding; K21.9 Gastro-esophageal reflux disease without esophagitis; J45.909 Unspecified asthma, uncomplicated; E11.9 Type 2 diabetes mellitus without complications; E78.5 Hyperlipidemia, unspecified; E03.9 Hypothyroidism, unspecified; Z79.890 Hormone replacement therapy; Z79.82 Long term (current) use of aspirin; Z79.84 Long term (current) use of oral hypoglycemic drugs; Z79.899 Other long term (current) drug therapy; Z91.011 Allergy to milk products; Z88.0 Allergy status to penicillin; Z88.1 Allergy status to other antibiotic agents
CPT/HCPCS: 00811; 45385; 99100; J2704; J3010; J7120; 88305; J3490

== ENCOUNTER 2024-10-10 07:13 | Day surgery (SDC) | payer MEDICARE, OTHER ==
[2024-10-10] MEDS: Lactated Ringers 1,000 ML IV SCH (07:47)
[2024-10-10] MEDS ORDERED: fentaNYL 50 MCG/ML SDV ONE (07:57)
[2024-10-10] MEDS ORDERED: Propofol 200 MG/20 ML SDV ONE (07:57)
[2024-10-10] MEDS ORDERED: Ketamine 200 MG/20 ML MDV ONE (07:57)
[2024-10-10 09:06] VITALS: BP 97/51; PULSE 60
== END 2024-10-10 09:50 | disposition home or self-care (01) ==
LOC: CC.SDS 07:13
PROVIDERS: ATTEND Family Medicine
DX: Z12.11 Encounter for screening for malignant neoplasm of colon (principal); K21.9 Gastro-esophageal reflux disease without esophagitis; E11.9 Type 2 diabetes mellitus without complications; E03.9 Hypothyroidism, unspecified; Z88.8 Allergy status to other drugs, medicaments and biological substances; Z79.82 Long term (current) use of aspirin; Z91.011 Allergy to milk products; Z79.899 Other long term (current) drug therapy; Z79.890 Hormone replacement therapy; Z86.0100 Personal history of colon polyps, unspecified
CPT/HCPCS: J2704; J3010; J3490; J7120